=== PATIENT | male | born 1945 | race Caucasian/White ===

== ENCOUNTER → 2016-07-01 | Outpatient (CLI) | payer MEDICARE | LOC: GMAB 10:27 | PROVIDERS: ATTEND Family Medicine | DX: I10 Essential (primary) hypertension (principal); Z12.5 Encounter for screening for malignant neoplasm of prostate | CPT/HCPCS: 84443; G0103 ==

== ENCOUNTER → 2016-08-16 | Outpatient (CLI) | payer MEDICARE | LOC: GMAB 18:59 | PROVIDERS: ATTEND Family Medicine | DX: R06.02 Shortness of breath (principal); J44.1 Chronic obstructive pulmonary disease with (acute) exacerbation ==

== ENCOUNTER → 2016-08-24 | Outpatient (CLI) | payer MEDICARE, OTHER ==
--- NOTE | 2016-08-24 11:23 | CT ---
EXAM DESCRIPTION: Chest w/o Contrast CLINICAL HISTORY: COPD COMPARISON: CT of abdomen and pelvis from June 14, 2014 TECHNIQUE: Non contrast multidetector CT imaging of the chest. Multiplanar reconstructions were provided.This exam was performed according to our department minimal dose optimization program which includes automated exposure control, adjustment of mA and/or kV according to patient size and/or use of iterative reconstructed techniques. FINDINGS: Prior sternotomy. Coronary artery disease noted. Heart size is unremarkable. Large hiatal hernia again visualized. No lymphadenopathy within the mediastinum. The descending aorta is tortuous. No pericardial effusion. Cholelithiasis noted within the upper abdomen along with probable left upper pole renal cyst. There is mild emphysema seen on today's study. Calcified granuloma seen within the medial right lung base. No additional parenchymal findings within the lungs. No pleural disease. Multilevel degenerative change of the thoracic spine noted. IMPRESSION: Today's exam demonstrates mild emphysema and evidence of prior granulomatous disease. No additional findings within the lungs. Large paraesophageal hiatal hernia noted. Cholelithiasis seen within the gallbladder. Electronically signed by: Oj Quintero MD 08/24/2016 11:22 AM CDT
== END | disposition home or self-care (01) ==
LOC: CT 09:39
PROVIDERS: ATTEND Family Medicine
DX: J44.1 Chronic obstructive pulmonary disease with (acute) exacerbation (principal)

== ENCOUNTER → 2017-02-04 | Outpatient (CLI) | payer OTHER ==
--- NOTE | 2017-02-05 18:20 | RAD ---
EXAM DESCRIPTION: Chest,2 Views CLINICAL HISTORY: COPD COMPARISON: None. FINDINGS: Two views of the chest are submitted. Cardiac silhouette appears normal. There is a probable moderate hiatal hernia. Atelectasis involves the lung bases. There is a possible 9 mm right lung base nodule, versus nipple shadow artifact. There is probable consolidation at the left lung base. No focal parenchymal or pleural disease. No acute bony abnormality. There is no significant pulmonary vascular engorgement. IMPRESSION: Probable left lung base consolidation. Electronically signed by: Ronaldo Strauss 02/05/2017 6:19 PM FUR BLENDER
== END | disposition home or self-care (01) ==
LOC: RAD 10:01
PROVIDERS: ATTEND Nurse Practitioner Family
DX: J44.9 Chronic obstructive pulmonary disease, unspecified (principal)

== ENCOUNTER 2017-02-27 08:43 | Emergency (ER) | payer OTHER ==
[2017-02-27 08:57] VITALS: O2SAT 90
--- NOTE | 2017-02-27 09:07 | ED.PDOC ---
History of Present Illness - General Chief Complaint: General Stated Complaint: Chills, congestion Time Seen by Provider: 02/27/17 08:46 Source: patient, RN notes reviewed, Vital Signs reviewed Exam Limitations: no limitations - History of Present Illness Initial Comments: Patient comes to ER after waking up at 02:00 with chills. Reports he was very cold and it took him an hour and a half to warm up. Did not take temperature. He has had cold symptoms for about a week. His was recently in the hospital with pneumonia. Denies other symptoms. Timing/Duration: 1-3 hours Severity: moderate Improving Factors: other - lots of blankets Worsening Factors: nothing Associated Symptoms: cough, fever/chills Allergies/Adverse Reactions: Allergies NO KNOWN ALLERGY Allergy (Verified 02/27/17 08:55) Home Medications: Ambulatory Orders Aspirin [Aspirin Adult Low Dose] 81 mg PO DAILY 02/27/17 Atorvastatin Calcium [Lipitor] 10 mg PO BEDTIME 02/27/17 Budesonide (Inhalation) [Budesonide] 1 mg IN BID 02/27/17 Lisinopril 20 mg PO DAILY 02/27/17 Melatonin 10 mg PO BEDTIME 02/27/17 Metoprolol Tartrate 25 mg PO DAILY 02/27/17 Naproxen Sodium-Diphenhydramin [Aleve Pm 220-25 mg] 1 tab PO BEDTIME 02/27/17 [place]-3 Fatty Acids [Fish Oil] 1,000 mg PO DAILY 02/27/17 Temazepam 15 mg PO BEDTIME 02/27/17 Tiotropium [place] Monohydrate [Spiriva Respimat] 2.5 mcg IN BID 02/27/17 Review of Systems - Review of Systems Constitutional: States: see HPI, chills. Denies: diaphoresis, fever, malaise EENTM: States: nose congestion. Denies: ear pain, throat pain, mouth pain Respiratory: Denies: cough, short of breath Cardiology: States: no symptoms reported Gastrointestinal/Abdominal: States: no symptoms reported Musculoskeletal: States: no symptoms reported Skin: States: no symptoms reported Neurological: States: no symptoms reported All other Systems: No Change from Baseline Past Medical History (General) - Patient Medical History Hx Stroke: No Hx of COPD: Yes Hx Cardiac Disorders: Yes - hypercholesterolemia; prior [place] with CABG Hx Congestive Heart Failure: No Hx Hypertension: Yes Hx Diabetes: No Hx MRSA: No Surgical History: coronary bypass surgery - Vaccination History Hx Influenza Vaccination: No - Social History Hx Tobacco Use: Yes - Quit 02/2017 Family Medical History - Family History Father Living Status: Cause of : [place] Hx Cardiac Disease: Yes Physical Exam - Physical Exam General Appearance: Alert, Comfortable, No apparent distress, Well Developed, Well Groomed, Well Hydrated, Well Nourished Eye Exam: bilateral normal Ears, Nose, Throat: hearing grossly normal, normal ENT inspection, normal pharynx Neck: non-tender, full range of motion, supple, normal inspection Respiratory: lungs clear, no respiratory distress, no accessory muscle use, decreased breath sounds - throughout Cardiovascular/Chest: regular rate, rhythm, no gallop, no JVD, no murmur Extremity: normal range of motion, normal inspection Neurologic: alert, normal mood/affect, oriented x 3 Skin Exam: normal color, warm/dry Comments: Vital Signs 02/27/17 08:51 Temperature 98.0 F Pulse Rate [ 65 Left Radial] Respiratory 22 Rate Blood Pressure 186/98 [Left Arm] O2 Sat by Pulse 90 L Oximetry Progress - Results/Orders Results/Orders: Influenza A&B: Negative - EKG/XRAY/CT XRAY: chest - No acute findings per Rad Departure - Departure Clinical Impression: Upper respiratory infection Qualifiers: URI type: unspecified viral URI Qualified Code(s): J06.9 - Acute upper respiratory infection, unspecified; B97.89 - Other viral agents as the cause of diseases classified elsewhere Time of Disposition: 10:15 Disposition: Discharge to Home or Self Care Condition: Good Departure Forms: ED Discharge - Pt. Copy, Patient Portal Self Enrollment Instructions: DI for Viral Upper Respiratory Infection -- Adult Diet: resume usual diet Activity: increase activity as tolerated Referrals: Chavez Ku MD [Primary Care Provider] - 1-2 Weeks Home Medications: Ambulatory Orders Aspirin [Aspirin Adult Low Dose] 81 mg PO DAILY 02/27/17 Atorvastatin Calcium [Lipitor] 10 mg PO BEDTIME 02/27/17 Budesonide (Inhalation) [Budesonide] 1 mg IN BID 02/27/17 Lisinopril 20 mg PO DAILY 02/27/17 Melatonin 10 mg PO BEDTIME 02/27/17 Metoprolol Tartrate 25 mg PO DAILY 02/27/17 Naproxen Sodium-Diphenhydramin [Aleve Pm 220-25 mg] 1 tab PO BEDTIME 02/27/17 [place]-3 Fatty Acids [Fish Oil] 1,000 mg PO DAILY 02/27/17 Temazepam 15 mg PO BEDTIME 02/27/17 Tiotropium [place] Monohydrate [Spiriva Respimat] 2.5 mcg IN BID 02/27/17
--- NOTE | 2017-02-27 10:07 | RAD ---
PROCEDURE: Chest,2 Views CLINICAL HISTORY: chills INDICATION: Same as above COMPARISON: 02/04/2017 TECHNIQUE: PA and and lateral chest radiographs were obtained. FINDINGS: Note is again made of median sternotomy. Stable elevation of the left hemidiaphragm is noted . There is a moderate size hiatal hernia There are no discrete airspace infiltrates, pneumothoraces or pleural effusions. The pulmonary vascularity is normal The cardiomediastinal silhouette is stable. IMPRESSION: There is no acute pleural-parenchymal process seen in the imaged lung holder. Moderate size hiatal hernia Electronically signed by: Ian Young MD 02/27/2017 10:06 AM DELIVERY PROFESSIONAL Workstation: [employer]-
[2017-02-27 10:43] VITALS: BP 181/91; TEMP 99.3
== END 2017-02-27 10:43 | disposition home or self-care (01) ==
LOC: ER 08:43
DX: J06.9 Acute upper respiratory infection, unspecified (principal); J44.9 Chronic obstructive pulmonary disease, unspecified; I25.2 Old myocardial infarction; E78.00 Pure hypercholesterolemia, unspecified; I10 Essential (primary) hypertension; Z95.1 Presence of aortocoronary bypass graft; Z79.899 Other long term (current) drug therapy; Z79.82 Long term (current) use of aspirin; Z87.891 Personal history of nicotine dependence

== ENCOUNTER → 2017-05-13 | Outpatient (CLI) | payer OTHER ==
--- NOTE | 2017-05-16 09:21 | CT ---
EXAM DESCRIPTION: CT chest without contrast CLINICAL HISTORY: Follow-up pulmonary nodules. Emphysema COMPARISON: 08/24/2016 TECHNIQUE: Spiral CT with multiplanar reformatted images. This exam was performed according to our departmental dose-optimization program, which includes automated exposure control, adjustment of the mA and/or kV according to patient size and/or use of iterative reconstruction technique. FINDINGS: Similar size large left diaphragmatic hernia with the opening from the esophageal hiatus to the mid left diaphragm about 10.8 cm transverse coronal reformat image 98. The diaphragmatic hernia contains the majority of the stomach, distal esophagus, and a portion of the transverse colon as well as a large volume of surrounding fat. Adjacent platelike subsegmental atelectasis in the right lower lobe and inferior lingula left upper lobe Calcified granuloma in the right lung base. There are no nodules to suggest neoplasm. No pulmonary edema, alveolar consolidation or effusion. Mild emphysema No thoracic mass or adenopathy to suggest neoplasm. Previous cardiac surgery 4.1 cm exophytic cyst upper pole left kidney. No mass or adenopathy to suggest neoplasm. A few small gallstones layering dependently in the gallbladder Multilevel degenerative change in the spine. No acute bony abnormality IMPRESSION: No pulmonary nodule to suggest neoplasm. Old granulomatous disease Large left diaphragmatic hernia similar to previous study Electronically signed by: Cr Tena MD 05/16/2017 9:20 AM CDT
== END ==
LOC: CT 08:50
PROVIDERS: ATTEND Nurse Practitioner Family
DX: R91.8 Other nonspecific abnormal finding of lung field (principal); K44.9 Diaphragmatic hernia without obstruction or gangrene

== ENCOUNTER → 2017-09-22 | Outpatient (CLI) | payer OTHER ==
--- NOTE | 2017-09-22 14:58 | CT ---
EXAM DESCRIPTION: Chest w/Contrast CLINICAL HISTORY: 72 years, Male, COPD COMPARISON: Previous study May 23, 2017 TECHNIQUE: Thin-section noncontrast axial CT images are obtained according to our protocol. Reconstructed MPR images are created and reviewed as well. FINDINGS: Lungs: Previous study showed infiltrate in the left lower lobe. This appears stable suggesting chronic infiltrate with scarring and atelectasis in the left lower lobe. The lingular disease appears slightly improved with more linear configuration and some somewhat decreased consolidation. Left hemidiaphragm is elevated. No mass or worrisome pulmonary nodule. Sternotomy wires are present. Mild gynecomastia is noted. Mediastinum: Lymph nodes are normal in size. Fat and stomach are herniated into the lower chest posterior and superior to the diaphragm. The hernia also contains a portion of the distal transverse colon. Most of the stomach is in the chest. The amount of surrounding fat is greater than usually seen with hiatal hernia. Normal vascular contours. Heart size is normal with no pericardial effusion. Coronary artery calcification is present. Left ventricular wall is prominent in thickness. Correlate with echocardiographic findings. Chest wall/axilla: No mass or adenopathy. Old right clavicle fracture seen with fusion or ligamentous calcification extending to the scapula. Degenerative changes are seen in the right more than left shoulder. Lower neck/supraclavicular: No mass or adenopathy. Upper abdomen: Unremarkable upper abdominal viscera other than the presence of calcified gallstones and cyst at the upper pole of the left kidney. Coronal and sagittal reformatted images confirm the findings. IMPRESSION: Large left hiatal/diaphragmatic hernia containing stomach, transverse colon and fat unchanged from previous study. Left lower lobe and inferior lingular linear scarring/discoid atelectasis with mild lingular improvement since previous exam. This exam was performed according to our departmental dose-optimization program, which includes automated exposure control, adjustment of the mA and/or kV according to patient size and/or use of iterative reconstruction technique. Total DLP equals 1129.41 mGycm. Electronically signed by: Shaheed Aly MD 09/22/2017 2:56 PM CDT
== END ==
LOC: LAB.O 08:02
PROVIDERS: ATTEND Internal Medicine
DX: J44.9 Chronic obstructive pulmonary disease, unspecified (principal); K44.9 Diaphragmatic hernia without obstruction or gangrene; J98.11 Atelectasis; R06.09 Other forms of dyspnea; R91.8 Other nonspecific abnormal finding of lung field; F17.290 Nicotine dependence, other tobacco product, uncomplicated

== ENCOUNTER → 2018-02-02 | Outpatient (CLI) | payer OTHER | LOC: GMAE 10:44 | PROVIDERS: ATTEND Family Medicine | DX: I10 Essential (primary) hypertension (principal) ==

== ENCOUNTER → 2018-03-02 | Outpatient (CLI) | payer OTHER ==
--- NOTE | 2018-03-02 14:17 | RAD ---
EXAM DESCRIPTION: Chest,2 Views CLINICAL HISTORY: COPD COMPARISON: Previous study February 27, 2017 TECHNIQUE: PA/lateral FINDINGS: Large hiatal hernia behind the heart. Heart size is large with normal pulmonary vascularity. Sternotomy wires are present. No pleural effusion or pneumothorax. Left hemidiaphragm is elevated. Linear scarring in the lingula. This density appears improved compared to the previous study. Minimal discoid atelectasis in the right lung base. Nipple shadows are prominent. Lungs are otherwise clear with no consolidating infiltrate. Lateral view shows intact sternum and spurring in the lower T-spine. IMPRESSION: Prominent heart without congestive failure. Large hiatal hernia. Electronically signed by: Shaheed Aly MD 03/02/2018 2:16 PM HANDLE ATTACHER
--- NOTE | 2018-03-02 14:32 | US ---
EXAM DESCRIPTION: Aorta: Ultrasound. CLINICAL HISTORY: SCREENING FOR OTHER DISORDER COMPARISON: None. TECHNIQUE: Transcutaneous scanning: Two-dimensional and Doppler modes. FINDINGS: Abdominal aorta diameter (cm) Proximal: 2.4 x 2.2. Mid: 2.0 x 2.0. Distal: 1.7 x 1.7. Common Iliac diameter (mm) Right: 11.9. Left: 13.2. Other: Minimal atherosclerotic irregularity of the lumen.. IMPRESSION: No abdominal aortic aneurysm. Ectasia of the proximal left common iliac artery but within normal limits. Electronically signed by: Ronaldo Castaneda MD 03/02/2018 2:31 PM [facility]
== END ==
LOC: US 09:18
PROVIDERS: ATTEND Internal Medicine Pulmonary Disease
DX: J44.9 Chronic obstructive pulmonary disease, unspecified (principal); K44.9 Diaphragmatic hernia without obstruction or gangrene; Z13.89 Encounter for screening for other disorder

== ENCOUNTER → 2018-04-11 | Outpatient (CLI) | payer OTHER ==
--- NOTE | 2018-04-11 16:18 | US ---
EXAM DESCRIPTION: Carotid Duplex: ULTRASOUND. CLINICAL HISTORY: 72 years Male STENOSIS COMPARISON: Ultrasound aorta 03/02/2018. TECHNIQUE: Transcutaneous scanning utilizing sánchez-scale and Doppler modes to evaluate the bilateral carotid systems and vertebral arteries. Percentage of diameter of stenosis or no stenosis recorded will be based upon NASCET criteria. FINDINGS: Peak systolic/end diastolic (CM-Sec) CCA Right 73/12 Left 87/15. ICA Right proximal 32/8, mid 43/14. Left proximal 59/12, Distal 45/15. Vertebral Right 35/10 Left 35/10. ECA (PS Only) Right 79 left 75. ICA/CCA peak systolic ratio: Right 0.6 Left 0.7 ICA/CCA end diastolic ratio: Right 1.2 Left 0.8 Vertebral arteries: antegrade flow. Comments: Large shadowing atherosclerotic calcifications in the bilateral common carotid bulbs and proximal ICAs. Diameter and area stenoses less than 25%. IMPRESSION: 1. Doppler evaluation of the bilateral carotid systems and vertebral arteries shows no hemodynamically significant stenoses. 2. No significant amount of plaque seen in the carotid arteries bilaterally. Bilateral vertebral arteries showed antegrade-cephalad flow. Electronically signed by: Ronaldo Castaneda MD 04/11/2018 4:16 PM TEAM PHYSICIAN
== END ==
LOC: US 09:24
PROVIDERS: ATTEND Family Medicine
DX: I65.23 Occlusion and stenosis of bilateral carotid arteries (principal)

== ENCOUNTER 2019-01-04 12:26 | Emergency (ER) | payer OTHER ==
[2019-01-04] MEDS ORDERED: TETANUS,DIPHTHERIA,PERTUSSIS 1 EA SYG IM ONE (12:41)
--- NOTE | 2019-01-04 13:05 | CT ---
EXAM DESCRIPTION: Head CLINICAL HISTORY: 73 years Male, slurred speech/fall/AMS COMPARISON: None. TECHNIQUE: Axial images obtained from the skull base to the vertex without intravenous contrast with images. Coronal and sagittal reformations provided. This exam was performed according to our departmental dose-optimization program, which includes automated exposure control, adjustment of the mA and/or kV according to patient size and/or use of iterative reconstruction technique. Time Last Seen Well (If known) for Code Stroke: n/a FINDINGS: Brain Parenchyma, ventricles, meninges, and extra-axial spaces: Mild to moderate generalized cerebral atrophy. Mild Nonspecific white matter hypodensities in the cerebral hemispheres likely related to ischemic small vessel disease. Possible difficulty differentiating a small acute infarction given these hypodensities. No acute intracranial hemorrhage. No abnormal extra-axial fluid collection. Vascular: Normal. Calvarium, paranasal sinuses, mastoids, and orbits: Calvarium intact. Moderate mucosal thickening in the left maxillary sinus. Remaining paranasal sinuses and mastoid air cells are clear. Orbits unremarkable. IMPRESSION: 1. No acute intracranial abnormality. Of note, CT is relatively insensitive when compared to MRI for evaluation of acute ischemic infarction. 2. Mild senescent changes. 3. Moderate left maxillary sinus disease. Electronically signed by: Isac Givens MD 01/04/2019 1:04 PM CDT
--- NOTE | 2019-01-04 13:18 | ED.PDOC ---
History of Present Illness - General Chief Complaint: Trauma Stated Complaint: fall, slurred speech Time Seen by Provider: 01/04/19 12:29 - History of Present Illness Initial Comments: Pt is a 73 y.o. w/ pmh of CAD, HTN, HLD who presents w/ c/o increased confusion, falls and slurred speech. reports patient has been having difficutly speaking over a week. Yesterday the patient did fall and hit his head and right elbow. This morning his reports he was speaking incoherently and so she decided to bring him to the ER. Patient denies any chest pain, dyspnea, numbness or weakness. Allergies/Adverse Reactions: Allergies NO KNOWN ALLERGY Allergy (Verified 02/27/17 08:55) Home Medications: Ambulatory Orders Aspirin [Aspirin Adult Low Dose] 81 mg PO DAILY 02/27/17 Atorvastatin Calcium [Lipitor] 10 mg PO BEDTIME 02/27/17 Budesonide (Inhalation) [Budesonide] 1 mg IN BID 02/27/17 Lisinopril 20 mg PO DAILY 02/27/17 Melatonin 10 mg PO BEDTIME 02/27/17 Metoprolol Tartrate 25 mg PO DAILY 02/27/17 Naproxen Sodium-Diphenhydramin [Aleve Pm 220-25 mg] 1 tab PO BEDTIME 02/27/17 [place]-3 Fatty Acids [Fish Oil] 1,000 mg PO DAILY 02/27/17 Temazepam 15 mg PO BEDTIME 02/27/17 Tiotropium [place] Monohydrate [Spiriva Respimat] 2.5 mcg IN BID 02/27/17 Review of Systems - Review of Systems Constitutional: States: no symptoms reported EENTM: States: no symptoms reported Respiratory: States: no symptoms reported Cardiology: States: no symptoms reported Gastrointestinal/Abdominal: States: no symptoms reported Genitourinary: States: no symptoms reported Musculoskeletal: States: no symptoms reported Skin: States: no symptoms reported Neurological: States: other - speech difficulties, difficulty walking Endocrine: States: no symptoms reported Hematologic/Lymphatic: States: no symptoms reported All other Systems: Reviewed and Negative Past Medical History (General) - Patient Medical History Hx Stroke: No Hx of COPD: Yes Hx Cardiac Disorders: Yes - hypercholesterolemia; prior [place] with CABG Hx Congestive Heart Failure: No Hx Hypertension: Yes Hx Diabetes: Yes Hx MRSA: No Surgical History: other - Vaccination History Hx Influenza Vaccination: No - Social History Hx Tobacco Use: Yes Family Medical History - Family History Father Family History: Unknown Living Status: Cause of : [place] Hx Cardiac Disease: Yes Physical Exam - Physical Exam General Appearance: Alert, Comfortable Ears, Nose, Throat: hearing grossly normal, normal ENT inspection Neck: non-tender, full range of motion, supple Respiratory: chest non-tender, lungs clear Cardiovascular/Chest: normal peripheral pulses, regular rate, rhythm Gastrointestinal/Abdominal: non tender, soft Extremity: normal range of motion, non-tender, normal inspection Neurologic: medical associate II-XII nml as tested, no motor/sensory deficits, alert, normal mood/affect, oriented x 3, abnormal gait, other - dysarthria, 5/5 b/l UE and LE strength Skin Exam: normal color, warm/dry Progress - Progress Progress: 01/04/19 13:51 Pt w/ h/o CAD/CHF, HTN, HLD presenting from home with dysarthria for > 1 week and a fall the day prior. is concerned that the patient's speech has changed and he has been more confused than normal. CT head obtained w/o acute findings. Symptoms are concerning for acute/subacute CVA. Spoke with Patient's PCP Dr. Lang who reports that he will be able to see the patient tomorrow morning and will be able to complete further stroke workup outpatient. Spoke with patient who would prefer to be discharged rather than transfer for admission and he is in agreement with plan. - Results/Orders Results/Orders: 01/04/19 12:45 EKG .ONCE Laboratory Results - last 24 hr 01/04/19 01/04/19 01/04/19 13:00 13:00 13:00 WBC 7.4 RBC 4.58 L Hgb 14.7 Hct 43.0 MCV 94.0 MCH 32.2 H MCHC 34.2 RDW 13.3 Plt Count 153 MPV 7.7 Absolute Neuts (auto) 6.20 Absolute Lymphs (auto) 0.60 L Absolute Monos (auto) 0.60 Absolute Eos (auto) 0.10 Absolute Basos (auto) 0.00 Neutrophils % 83.1 H Lymphocytes % 8.0 L Monocytes % 7.5 Eosinophils % 1.0 Basophils % 0.4 PT 11.0 H INR 1.10 PTT (SP) 27.2 Sodium 142 Potassium 3.6 Chloride 104 Carbon Dioxide 28 Anion Gap 13.6 BUN 18 Creatinine 1.04 BUN/Creatinine Ratio 17.3 Random Glucose 119 H Serum Osmolality 286.2 Calcium 8.9 Magnesium 1.7 L Total Bilirubin 0.9 AST 24 ALT 18 Alkaline Phosphatase 67 Serum Total Protein 6.1 L Albumin 3.5 Globulin 2.6 Albumin/Globulin Ratio 1.3 CT head IMPRESSION: 1. No acute intracranial abnormality. Of note, CT is relatively insensitive when compared to MRI for evaluation of acute ischemic infarction. 2. Mild senescent changes. 3. Moderate left maxillary sinus disease. Departure - Departure Clinical Impression: Dysarthria Fall Qualifiers: Encounter type: initial encounter Qualified Code(s): W19.XXXA - Unspecified fall, initial encounter Disposition: Discharge to Home or Self Care Condition: Good Departure Forms: ED Discharge - Pt. Copy, Patient Portal Self Enrollment Instructions: Stroke (DC) Referrals: CLINTON LANG MD [Primary Care Provider] - 1-2 Weeks Home Medications: Ambulatory Orders Aspirin [Aspirin Adult Low Dose] 81 mg PO DAILY 02/27/17 Atorvastatin Calcium [Lipitor] 10 mg PO BEDTIME 02/27/17 Budesonide (Inhalation) [Budesonide] 1 mg IN BID 02/27/17 Lisinopril 20 mg PO DAILY 02/27/17 Melatonin 10 mg PO BEDTIME 02/27/17 Metoprolol Tartrate 25 mg PO DAILY 02/27/17 Naproxen Sodium-Diphenhydramin [Aleve Pm 220-25 mg] 1 tab PO BEDTIME 02/27/17 [place]-3 Fatty Acids [Fish Oil] 1,000 mg PO DAILY 02/27/17 Temazepam 15 mg PO BEDTIME 02/27/17 Tiotropium [place] Monohydrate [Spiriva Respimat] 2.5 mcg IN BID 02/27/17
[2019-01-04 14:27] VITALS: BP 138/81; TEMP 97; O2SAT 94
== END 2019-01-04 14:15 | disposition home or self-care (01) ==
LOC: ER 12:26
DX: R47.1 Dysarthria and anarthria (principal); I25.10 Atherosclerotic heart disease of native coronary artery without angina pectoris; I50.9 Heart failure, unspecified; I11.0 Hypertensive heart disease with heart failure; E78.00 Pure hypercholesterolemia, unspecified; R41.0 Disorientation, unspecified; J44.9 Chronic obstructive pulmonary disease, unspecified; I25.2 Old myocardial infarction; E11.9 Type 2 diabetes mellitus without complications; Z23 Encounter for immunization; Z95.1 Presence of aortocoronary bypass graft; Z87.891 Personal history of nicotine dependence; Z79.82 Long term (current) use of aspirin; Z79.899 Other long term (current) drug therapy; W19.XXXA Unspecified fall, initial encounter

== ENCOUNTER → 2019-01-11 | Outpatient (CLI) | payer OTHER ==
--- NOTE | 2019-01-12 10:18 | MRI ---
EXAM DESCRIPTION: Brain w/oContrast: MRI. CLINICAL HISTORY: SLURRED SPEECH COMPARISON: CT scan of the head December. TECHNIQUE: Multiplanar, high-field MRI unit, multiple diffusion sequences, multiple conventional sequences without contrast. FINDINGS: Multi focal hyperintense FLAIR and T2-weighted signal in the subcortical white matter of the frontal parietal and occipital lobes at the level of the ventricles and extending almost to the vertex. More lesions on the left than the right. Also confluent hyperintense FLAIR and T2 periventricular white matter signal around the frontal and occipital horns of the bilateral lateral ventricles. Minimal involvement of the centrum semiovale bilaterally, and corpus callosum. Asymmetric lesion on the left at the junction of the left temporal lobe and posterior left parietal lobe just lateral to the left occipital horn.. No hemorrhage, no cerebral edema, no mass-effect. No diffusion restriction. Focal hyperintense T1 and T2 signal in the anterior right basal ganglia abutting the anterior limb of the internal capsule. No hemorrhage no mass effect and no diffusion restriction.. Heterogeneous hyperintense FLAIR and T1 signal in the central otoniel, with no hemorrhage mass effect or diffusion restriction. Cerebellar hemispheres are unremarkable. No hemorrhage, no parenchymal edema, no mass-effect. Concordance of the diffusion and non-diffusion sequences with no diffusion restriction. Cortical sulci, ventricles, and other CSF spaces, and the subdural spaces are physiologic for patient's age. No effacement or displacement. No midline shift. No extra-axial hemorrhage. Normal flow signal void in the major vessels of the cachil dehe Pena, and the venous sinuses. IACs are symmetric bilaterally. Normal signal in the bilateral mastoid air cells. No mass effect in the bilateral cerebellopontine angles. Pituitary gland occupies less than half of the sella. Base of the cerebellar tonsils is at the level of the foramen magnum. Mucoperiosteal thickening in the bilateral paranasal sinuses with polyp or cyst in the base of the left antrum.. The bony calvarium is intact. IMPRESSION: 1. Multifocal bilateral subcortical white matter lesions with minimal confluent periventricular white matter lesions bilaterally. Slightly more lesions in the left cerebral hemisphere with a focal lesion at the junction of the inferior left posterior parietal lobe and posterior left temporal lobe. No hemorrhage, no mass effect, and no diffusion restriction. Most likely related to cerebral microvascular disease and aging. Similar uncomplicated lesions in the central otoniel and right basal ganglia. No extra-axial hemorrhage or fluid collection. 2. Normal noncontrast MRI scan of the brain with no diffusion restriction, no evidence of acute/subacute significant ischemia or infarction. 3. Paranasal sinus disease 4. Small pituitary gland Electronically signed by: Ronaldo Castaneda MD 01/12/2019 10:16 AM [facility]
== END ==
LOC: MRI 09:56
PROVIDERS: ATTEND Family Medicine
DX: R47.81 Slurred speech (principal); R90.82 White matter disease, unspecified; E23.7 Disorder of pituitary gland, unspecified; J34.89 Other specified disorders of nose and nasal sinuses

== ENCOUNTER → 2019-04-03 | Outpatient (CLI) | payer OTHER | LOC: GMAE 10:29 | PROVIDERS: ATTEND Family Medicine | DX: Z12.5 Encounter for screening for malignant neoplasm of prostate (principal); I10 Essential (primary) hypertension; E78.2 Mixed hyperlipidemia | CPT/HCPCS: 84443; G0103 ==

== ENCOUNTER → 2019-05-15 | Outpatient (CLI) | payer OTHER | DX: Z87.891 Personal history of nicotine dependence (principal); K44.9 Diaphragmatic hernia without obstruction or gangrene; J43.9 Emphysema, unspecified; J94.8 Other specified pleural conditions ==

== ENCOUNTER → 2020-04-04 | Outpatient (CLI) | payer OTHER | LOC: GMAE 11:23 | PROVIDERS: ATTEND Family Medicine | DX: Z12.5 Encounter for screening for malignant neoplasm of prostate (principal); I10 Essential (primary) hypertension | CPT/HCPCS: 84443; G0103 ==